=== PATIENT | female | born 1995 | race Caucasian/White ===

== ENCOUNTER 2022-06-02 12:42 | Inpatient (IN) ==
[2022-06-02] MEDS ORDERED: PITOCIN IVP ONE (13:03)
[2022-06-02] MEDS ORDERED: D5 LR + PITOCIN 10 UNITS/L 10 UNITS/1,000 ML BAG IV PRN (13:03)
[2022-06-02] MEDS ORDERED: AMPICILLIN VIAL 2 GRAM ONE (13:06)
[2022-06-02] MEDS ORDERED: NS 100 ML IV 100 ML ONE (13:06)
[2022-06-02 13:25] LABS: BASOPHILS # (AUTO) 0.1 X10^3/uL (0.0-0.1); BASOPHILS % (AUTO) 0.8 % (0.2-1.0); EOSINOPHILS # (AUTO) 0.1 x10^3/uL (0.0-0.2); EOSINOPHILS % (AUTO) 0.4 % (0.9-2.9); HEMOGLOBIN 8.8 g/dL (12.0-16.0); LYMPHOCYTES # (AUTO) 1.5 X10^3/uL (1.3-2.9); LYMPHOCYTES % (AUTO) 8.5 % (21.0-51.0); MEAN CORPUSCULAR HEMOGLOBIN 28.4 pg (27.0-34.0); MEAN CORPUSCULAR HGB CONC 33.8 g/dL (33.0-35.0); MEAN CORPUSCULAR VOLUME 84.1 fL (80.0-100.0); MEAN PLATELET VOLUME 8.7 fL (7.4-11.0); MONOCYTES % (AUTO) 5.8 % (0.0-13.0); NEUTROPHILS # (AUTO) 15.2 x10^3/uL (2.2-4.8); NEUTROPHILS % (AUTO) 84.5 % (42.0-75.0); RED BLOOD COUNT 3.09 X10^6/uL (3.5-5.4); RED CELL DISTRIBUTION WIDTH 13.7 % (11.6-16.5); WHITE BLOOD COUNT 17.9 X10^3/uL (3.6-10.0)
[2022-06-02 13:26] LABS: APPEARANCE,URINE CLEAR (CLEAR); BACTERIA,URINE TRACE /HPF (NEGATIVE); BILIRUBIN,URINE NEGATIVE (NEGATIVE); BLOOD/HEMOGLOBIN,URINE NEGATIVE (NEGATIVE); COLOR,URINE YELLOW (YELLOW); GLUCOSE, URINE NEGATIVE (NEGATIVE); KETONES,URINE 3+ (NEGATIVE); LEUKOCYTE ESTERASE ,URINE 1+ (NEGATIVE); NITRITES,URINE NEGATIVE (NEGATIVE); PROTEIN,URINE NEGATIVE (NEGATIVE); RBC,URINE 0-2 /HPF (0-3); SQUAMOUS EPITHELIAL CELL,UR RARE /HPF (NEGATIVE); UROBILINOGEN,URINE NORMAL (NORMAL)
[2022-06-02 13:27] LABS: BLOOD UREA NITROGEN 5 mg/dL (7-18); CALCIUM 8.5 mg/dL (8.5-10.1); CARBON DIOXIDE 22.6 mmol/L (21-32); CHLORIDE 101 mmol/L (98-107); CREATININE 0.68 mg/dL (0.55-1.02); SODIUM 134 mmol/L (136-145); eGFR NON BLACK RACES > 60 (>60)
[2022-06-02] MEDS ORDERED: STADOL INJ IVP PRN (13:29)
[2022-06-02] MEDS ORDERED: STADOL INJ ONE (13:38)
[2022-06-02] MEDS ORDERED: D5 1/2 NS 1,000 ML 1,000 ML IV ONE (13:38)
[2022-06-02] MEDS ORDERED: PITOCIN ONE (13:38)
[2022-06-02] MEDS ORDERED: D5 LR + PITOCIN 10 UNITS/L 10 UNITS/1,000 ML BAG IV ONE (13:39)
[2022-06-02] MEDS ORDERED: D5 1/2 NS 1,000 mL + PITOCIN 20 UNITS/L IV 20 UNITS/1,000 ML BAG IV ONE (13:39)
[2022-06-02] MEDS ORDERED: BETADINE SOLN ONE (13:39)
[2022-06-02] MEDS ORDERED: MOTRIN TAB 800 MG PO PRN (13:45)
[2022-06-02] MEDS ORDERED: PHENERGAN INJ 25 MG IM PRN (13:45)
[2022-06-02] MEDS ORDERED: AMPICILLIN VIAL 2 GRAM 2 G in NS 100 ML IV + SPIKE MINIBAG* 100 ML IV SCH (14:00)
[2022-06-02] MEDS ORDERED: D5 1/2 NS 1,000 ML 1,000 ML IV SCH (14:00)
--- NOTE | 2022-06-02 14:06 | US ---
HISTORYIN LABOR ALMOST FULLY DILATED WITH NO HX OF CARESTUDYOB GREATER THAN 14 WEEKS LIMITCOMPARISONNoneTECHNIQUEMultiple abel scale and color flow Doppler images of the pelvis were obtained with focused evaluation of the fetus.FINDINGSA viable single intrauterine is identified with heart tones of 153 beats per minute. A cephalic presentation is observed with a anterior placenta.No obvious placenta previa seen but detail is limited. Negligible amniotic fluid remains.Very limited anatomy evaluation is obtained due to lack of amniotic fluid and advanced age. Visualized portions of the spine appear normal. Four-chamber heart is seen. Three-vessel cord and urinary bladder are seen but kidneys are not identified.The BPD is 8.0 cm corresponding to and estimated gestational age of 32 weeks 2 days.The HC is 30.3 cm corresponding to and estimated gestational age of 33 weeks 5 days.The AC is 26.7 cm corresponding to and estimated gestational age of 30 weeks 6 days.The FL is 5.8 cm corresponding to and estimated gestational age of 30 weeks 2 days.Estimated weight is 1698 grams, 36 percentile.IMPRESSIONA viable single intrauterine with an average ultrasound age of 31 weeks 6 days corresponding to an estimated date of delivery of 07/29/2022.There is prominent oligohydramnios. Limited anatomy visualization is obtained.Electronically signed by: Rodrigo Still (Jun 02, 2022 14:04:26)
[2022-06-02] MEDS: D5 1/2 NS 1,000 ML 1,000 ML with PITOCIN 20 UNITS IV SCH ×4 (15:01→22:55)
[2022-06-02] MEDS ORDERED: MILK OF MAGNESIA PO PRN (15:17)
[2022-06-02] MEDS ORDERED: DERMOPLAST PAIN RELIEF SPRAY TOP PRN (15:17)
[2022-06-02] MEDS ORDERED: ADACEL or BOOSTRIX TDaP VACCINE IM ONE (15:17)
[2022-06-02] MEDS ORDERED: AMBIEN PO PRN (15:17)
--- NOTE | 2022-06-02 15:30 | DR.OB ---
OB Quick Note - Assessment/Plan Assessment/Plan: Delivery Note MARKETING SUMMER INTERN 06/02/22 at 13:23 Patient complete and pushing. Head delivered over intact perineum. No nuchal cord. Nose and mouth bulb suctioned. Body delivered over intact perineum. Cord clamped x 2 and cut. Infant handed to attendant. Cord sent for gases. Placenta delivered spontaneously / intact / 3 vessel cord. No CVX / vaginal / perineal tears noted. Viable male infant, VTX/OP, wt=4'11" and 7/8, stable to NBN. Mother stable to RR. UGP=[id number].
[2022-06-02] MEDS ORDERED: XANAX PO PRN (16:53)
[2022-06-03] MEDS: D5 1/2 NS 1,000 ML 1,000 ML with PITOCIN 20 UNITS IV SCH ×2 (05:01)
[2022-06-03 05:27] LABS: HEMATOCRIT 25.6 % (36.0-47.0); HEMOGLOBIN 8.5 g/dL (12.0-16.0)
[2022-06-03] MEDS ORDERED: DEPO-PROVERA CONTRACEPTIVE INJ IM ONE (07:47)
[2022-06-03] MEDS ORDERED: PRENATAL PLUS PO SCH (09:00)
[2022-06-03 09:58] VITALS: BP 104/51
[2022-06-05 12:56] LABS: SICKLE CELL SOLUBILITY Not Performed
== END 2022-06-03 10:10 | disposition home or self-care (01) | DRG 806 ==
LOC: ER 12:42 → LD 13:01 → MED/SURG 15:19
PROVIDERS: ADMIT Specialist; ATTEND Specialist
DX: O60.14X0 Preterm labor third trimester with preterm delivery third trimester, not applicable or unspecified; Z20.822 Contact with and (suspected) exposure to COVID-19; Z3A.32 32 weeks gestation of pregnancy; Z37.0 Single live birth; O41.03X0 Oligohydramnios, third trimester, not applicable or unspecified